=== PATIENT | female | born 1975 | race Caucasian/White ===

== ENCOUNTER → 2016-11-09 | Outpatient (CLI) | payer OTHER ==
[~2016-11-09] MED LIST: ALAVERT10 MG PO; ALBUTEROL-200 PUFFS/ IH; ALLEGRA180 MG PO; ASMANEX TW0.22 MG/A1 IH; ASPIRIN 81MG TA81 MG PO; ATIVAN1 M1 PO; ATIVAN1 MG PO; BACTRIM DS 8001 TAB PO; BAYER ASPIRIN C81 MG PO; BENADRYL 25MG C25 MG PO; CETIRIZINE10 MG PO; CIPRO 500MG TA500 MG PO; CORTISPORI7.5 ML/BOT OP; DARVOCET-N6 EACH/PAK OR; FIORICET 325 MG1 TAB PO; FLEXERIL10 MG PO; HYDROXYZINE 25M25 MG PO; INDOCIN25 MG PO; KAPIDEX60 MG PO; LEVOTHYROXINE0.05 MG PO; LISINOPRIL 20MG20 MG PO; LORTAB 5/500 501 TAB PO; LORTAB 500 MG-71 TAB PO; MAGNESIUM200 MG PO; MECLIZINE25 MG PO; MEDROL 4MG. DOSE4 MG PO; METFORMIN500 MG PO; MOBIC15 MG PO; MULTI VITAMINS1 TA1 PO; NASONEX0.05 MG/AC NS; NORCO 325 MG-51 TAB PO; PHENERGAN 25MG.25 M1 PO; PHENERGAN 25MG.25 MG PR; PRAVACHOL 20MG.20 MG PO; PRAVASTATIN 20M20 MG PO; PROTONIX 40MG T40 MG PO; RANITIDINE HCL150 MG PO; SEPTRA DS 800 M1 TAB PO; SINGULAIR 10 MG10 MG PO; TRIAMCINOLON TP; ULTRAM 50 MG TA50 MG PO; VICODIN 5/500 T1 TAB PO; VITAMIN B-1100 MG PO; VITAMIN C500 M1 PO; ZANTAC 300300 MG PO; ZOFRAN ODT4 MG PO
[2016-11-09 16:36] LABS: HEMOGLOBIN 14.1 g/dL (12.2-16.2); LYMPH # 3.1 K/mm3 (0.7-4.5); LYMPH % 33.8 % (10-50.0)
[2016-11-09 17:40] LABS: BUN 14 mg/dL (7-18)
[2016-11-09 17:57] LABS: GFR (ESTIMATED) 111 ML/MIN (59-)
[2016-11-10 08:30] LABS: ESTRADIOL 78 pg/mL (()); FSH 4.8 mIU/mL (())
== END ==
LOC: LAB 15:59
PROVIDERS: Internal Medicine
DX: R10.11 Right upper quadrant pain (principal); R53.83 Other fatigue; N95.1 Menopausal and female climacteric states; N91.1 Secondary amenorrhea; E66.01 Morbid (severe) obesity due to excess calories; E28.2 Polycystic ovarian syndrome; R73.01 Impaired fasting glucose; I10 Essential (primary) hypertension; E78.5 Hyperlipidemia, unspecified